=== PATIENT | female | born 1985 | race Caucasian/White ===

== ENCOUNTER 2016-08-04 18:12 | Emergency (ER) | payer OTHER, MEDICAID ==
[~2016-08-04] VITALS: Ht 165.1 cm; Wt 63.5 kg
[~2016-08-04 18:12] MED LIST: INDERAL40 MG PO; KLONOPIN0.5 MG PO; PROZAC20 MG PO; ZANAFLEX4 MG PO
== END 2016-08-04 21:00 | disposition short-term general hospital (02) ==
LOC: ER 18:12
DX: G43.909 Migraine, unspecified, not intractable, without status migrainosus (principal)
CPT/HCPCS: J1170; J1885; J2405

== ENCOUNTER 2016-08-29 11:44 | Day surgery (SDC) | payer OTHER, MEDICAID | END 2016-08-29 15:34 | disposition short-term general hospital (02) | LOC: CLPAIN 11:44 → SURGOP 11:44 → EDSTATUS 12:27 → SURGOP 15:34 | PROC: 3E0R33Z Introduction of Anti-inflammatory into Spinal Canal, Percutaneous Approach (ICD-10-PCS; principal; 2016-08-29) | PROC: 3E0R3BZ Introduction of Anesthetic Agent into Spinal Canal, Percutaneous Approach (ICD-10-PCS; 2016-08-29) | PROC: BR1 Imaging, Axial Skeleton, Except Skull and Facial Bones, Fluoroscopy (ICD-10-PCS; 2016-08-29) | DX: M51.17 Intervertebral disc disorders with radiculopathy, lumbosacral region (principal); E66.9 Obesity, unspecified; Z86.69 Personal history of other diseases of the nervous system and sense organs; Z79.899 Other long term (current) drug therapy | CPT/HCPCS: J1040; Q9967 ==

== ENCOUNTER 2016-09-18 18:45 | Emergency (ER) | payer OTHER, MEDICAID ==
[~2016-09-18] VITALS: Ht 165.1 cm; Wt 68.0 kg
== END 2016-09-18 21:05 | disposition short-term general hospital (02) ==
LOC: ER 18:45
DX: G43.909 Migraine, unspecified, not intractable, without status migrainosus (principal); Z79.899 Other long term (current) drug therapy
CPT/HCPCS: J1200; J1885; J2175